=== PATIENT | female | born 2000 | race Caucasian/White ===

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

== ENCOUNTER 2022-01-10 19:44 | Emergency (ER) | payer MEDICAID ==
[~2022-01-10] VITALS: Ht 157.5 cm; Wt 53.0 kg
[2022-01-10] MEDS ORDERED: CLIN-194 MT (22:58)
[2022-01-10 23:05] VITALS: BP 118/78
== END 2022-01-10 23:00 | disposition home or self-care (01) ==
LOC: ER 19:44
DX: L02.411 Cutaneous abscess of right axilla (principal); N63.41 Unspecified lump in right breast, subareolar
CPT/HCPCS: 99281; 99283

== ENCOUNTER 2023-07-28 01:07 | Emergency (ER) | payer MEDICAID, OTHER ==
[~2023-07-28] VITALS: Ht 157.5 cm; Wt 53.7 kg
[~2023-07-28 01:07] MED LIST: CLIN-194 MT
[2023-07-28 01:13] VITALS: O2SAT 98
[2023-07-28] MEDS ORDERED: AMOX1TAB16 MT (05:27)
[2023-07-28 05:34] VITALS: BP 118/64; PULSE 72; RESP 14; TEMP 98
== END 2023-07-28 05:35 | disposition home or self-care (01) ==
LOC: ER 01:34
DX: H66.92 Otitis media, unspecified, left ear (principal); J45.909 Unspecified asthma, uncomplicated
CPT/HCPCS: 99281